=== PATIENT | male | born 1935 | race Hispanic/Latino ===

== ENCOUNTER 2018-04-02 09:06 | Emergency (ER) | payer MEDICARE ==
[~2018-04-02 09:06] MED LIST: AEC81 PO; ATOR40TA69 PO; EZET10TA26 PO; FLUT50BL IH; LISI10TA7 PO; METO25 PO; MONT10TA24 PO; PANT40TA PO; POTA10CA44 PO; TAMS0.4C32 PO; TICA90TA PO
[2018-04-02] MEDS ORDERED: NITROGLYCERIN 1GM/1 INCH PACKET TD ONE (09:27)
[2018-04-02 09:30] LABS: BASOPHILS % (AUTO) 0.7 % (0.0-5.0); EOSINOPHILS % (AUTO) 2.1 % (0.0-8.0); LYMPHOCYTES % (AUTO) 13.6 % (21.0-51.0); MEAN CORPUSCULAR HEMOGLOBIN 31.5 pg (27.0-33.0); MEAN CORPUSCULAR VOLUME 95.6 fL (79-99); MONOCYTES % (AUTO) 8.9 % (3.0-13.0); NEUTROPHILS % (AUTO) 74.7 % (40.0-77.0); NUCLEATED RED BLOOD CELLS 0.1 % (0.0-0.19); PLATELET COUNT (AUTO) 173 K/uL (130-400); RED BLOOD CELL COUNT(AUTO) 4.18 MIL/uL (4.50-6.20); RED CELL DISTRIBUTION WIDTH 13.6 % (11.0-15.5); WHITE BLOOD COUNT (AUTO) 7.5 K/uL (4.8-10.8)
[2018-04-02 10:14] LABS: B-TYPE NATRIURETIC PEPTIDE 369 pg/mL (0-100)
[2018-04-02 10:17] LABS: POTASSIUM 3.4 mmol/L (3.5-5.1)
[2018-04-02 10:21] LABS: ALBUMIN 3.7 g/dL (3.5-5.0); BILIRUBIN,TOTAL 1.2 mg/dL (0.2-1.0); TOTAL PROTEIN, SERUM 7.1 g/dL (6.0-8.3)
[2018-04-02 10:38] LABS: INR 1.07 (0.85-1.15); PARTIAL THROMBOPLASTIN TIME 26.2 SEC (26.3-35.5); PROTHROMBIN TIME 11.2 SEC (9.6-11.6)
== END 2018-04-02 14:00 | disposition home or self-care (01) ==
LOC: EDH 09:06
DX: R07.89 Other chest pain (principal); I10 Essential (primary) hypertension; R06.02 Shortness of breath; I25.2 Old myocardial infarction; I25.10 Atherosclerotic heart disease of native coronary artery without angina pectoris; E78.00 Pure hypercholesterolemia, unspecified; Z90.49 Acquired absence of other specified parts of digestive tract
CPT/HCPCS: 36415; 71045; 80053; 82550; 83880; 84484; 85025; 85610; 85730; 93005